=== PATIENT | female | born 1990 | race African-American/Black ===

== ENCOUNTER 2016-09-22 12:13 | Emergency (ER) | payer OTHER, SELFPAY ==
--- NOTE | 2016-09-22 13:06 | EDDOCDS ---
Nurse's Notes [facility] Name: Richie Maravilla Age: 25 yrs Sex: Female : 1990 Arrival Date: 09/22/2016 Time: 12:13 Bed Triage 1 Private MD: Kostas - Complete Info On Cds Diagnosis: Hemorrhoids and perianal venous thrombosis-external Presentation: 09/22 12:25 Presenting complaint: Mother states: hemorrhoids from giving 5 years ago. Patient hs1 reports bleeding this morning and for the past couple of days. Patient also reports mucus in stool. Adult Sepsis Screening: The patient does not have new or worsening altered mentation. Patient's respiratory rate is less than 22. Systolic blood pressure is greater than 100. Patient has a qSOFA score of 0- Negative Sepsis Screen. Suicide/Homicide risk assessment- the patient denies having any suicidal and/or homicidal ideations and does not present with any other emotional, behavioral or mental health complaints. Status: The patient is a dependent. Transition of care: patient was not received from another setting of care. 12:25 Acuity: ANN Level 3 hs1 12:25 Method Of Arrival: Walkin/Carried/Asstd hs1 Triage Assessment: 12:27 General: Appears in no apparent distress, Behavior is appropriate for age, cooperative. hs1 Pain: Location: anus Pain currently is 7 out of 10 on a pain scale. Pain: Quality of pain is described as aching, sharp, throbbing. Pt Declines HIV testing. Respiratory: No deficits noted. 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 none - PMHx: none; - PSHx: Laparoscopy; - Social history: Smoking status: Patient states was never smoker of tobacco. No barriers to communication noted, The patient speaks fluent Indonesian, Speaks appropriately for age. - Family history: Not pertinent. - : The pt / caregiver states he / she is not on anticoagulants. Home medication list is obtained from the patient. - Exposure Risk Screening:: None identified. Screenin:04 Screening information is obtained from the patient. Fall risk: No risks identified. mlb1 Assistance ADL's: requires no assistance with activities of daily living. Abuse/DV Screen: The patient / caregiver reports he/she is: not in a situation that causes fear, pain or injury. Nutritional screening: No deficits noted. Advance Directives: Currently, there is no health care proxy. home support is adequate. Assessment: 13:04 General: Appears in no apparent distress, comfortable, Behavior is appropriate for age, mlb1 cooperative. Pain: Location: anus Pain currently is 6 out of 10 on a pain scale. Neurological: No deficits noted. Vital Signs: 12:15 BP 122 / 85; Pulse 68; Resp 18 S; Temp 96.0(O); Pulse Ox 100% on R/A; Weight 69.85 kg gr2 (R); Height 5 ft. 4 in. (162.56 cm) (R); Pain 8/10; 12:15 Body Mass Index 26.43 (69.85 kg, 162.56 cm) gr2 Vitals: 12:15 Log In Time: September 22, 2016 at 12:15. gr2 ED Course: 12:15 Patient visited by Meli Perkins. gr2 12:15 Other - Complete Info On Cds is Private Physician. gr2 12:15 Patient moved to Waiting gr2 12:16 Patient visited by Meli Perkins. gr2 12:16 Patient moved to Pre RCE gr2 12:27 Triage Initiated hs1 12:30 Patient moved to Triage 1 mk4 12:36 Antonio Blue PA-C is PHCP. cc10 12:36 Rosa Joy MD is Attending Physician. cc10 12:41 Patient visited by Antonio Blue PA-C. cc10 12:41 Patient visited by Antonio Blue PA-C. cc10 12:54 Henrietta [facility] [place] is Referral Physician. cc10 13:04 No IV's were initiated during this patient's visit. No procedures done that require mlb1 assistance. 13:05 The patient / caregiver is instructed regarding the plan of care and ED course. mlb1 Order Results: There are currently no results for this order. Outcome: 12:54 Discharge ordered by Provider. cc10 13:05 Discharge Assessment: Patient awake, alert and oriented x 3. No cognitive and/or mlb1 functional deficits noted. Patient verbalized understanding of disposition instructions. patient administered narcotics - no. The following High Risk Discharge criteria are identified: None. Discharged to home ambulatory. Condition: good. Discharge instructions given to patient, Instructed on discharge instructions, follow up and referral plans. Demonstrated understanding of instructions, medications, Pt was receptive of discharge instructions/ teaching. Prescriptions given X 3. No special radiology studies were completed. Property sent home with patient. 13:06 Patient left the ED. mlb1 Signatures: Tommie Johnson RN RN mlb1 Jayne Wilks RN RN hs1 Meli Perkins gr2 Divya Hines RN RN mk4 Antonio Blue, PA-C PA-C cc10 MTDD
--- NOTE | 2016-09-22 13:06 | EDDOCDS ---
Physician Documentation [facility] Name: Richie Maravilla Age: 25 yrs Sex: Female : 1990 Arrival Date: 09/22/2016 Time: 12:13 Bed Triage 1 Private MD: Kostas - Complete Info On Cds Disposition: 09/22/16 12:54 Discharged to Home/Self Care. Impression: Hemorrhoids and perianal venous thrombosis - external. - Condition is Stable. - Discharge Instructions: Hemorrhoids, Sitz Bath. - Prescriptions for Dulcolax 5 mg - take 2 tablet by ORAL route at bedtime As needed; 30 tablet. Hydrocortisone 2.5 % Rectal Cream - apply 1 application by TOPICAL route 4 times per day apply to rectal area; 30 gram. Miralax 17 gram/dose - take 17 gram by ORAL route once daily As needed dilute in 8 ounces of water or juice; 1 bottle. - Medication Reconciliation, Work Release Form - 1 day form. - Follow up: DENNIS Shrestha; When: Call to arrange an appointment; Reason: Wound/Symptom Recheck, Recheck today's complaints, Worsening of conditions, Continuance of care. - Problem is an ongoing problem. - Symptoms are unchanged. Historical: - Allergies: No known drug Allergies; - Home Meds: 1. none - PMHx: none; - PSHx: Laparoscopy; - Social history: Smoking status: Patient states was never smoker of tobacco. No barriers to communication noted, The patient speaks fluent Kosovan, Speaks appropriately for age. - Family history: Not pertinent. - : The pt / caregiver states he / she is not on anticoagulants. Home medication list is obtained from the patient. - Exposure Risk Screening:: None identified. 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 4 in. (162.56 cm) (R); Pain 8/10; 12:15 Body Mass Index 26.43 (69.85 kg, 162.56 cm) gr2 MDM: 12:45 Undress patient appropriately for examination ordered. cc10 12:45 Misc. Nursing Order ordered. cc10 Signatures: Tommie Johnson RN RN mlb1 Jayne Wilks RN RN hs1 Antonio Blue PA-C PA-C cc10 MTDD
--- NOTE | 2016-09-24 14:06 | EDDOCDS ---
Physician Documentation [facility] Name: Richie Maravilla Age: 25 yrs Sex: Female : 1990 Arrival Date: 09/22/2016 Time: 12:13 Bed Triage 1 Private MD: Kostas - Complete Info On Cds Disposition: 09/22/16 12:54 Discharged to Home/Self Care. Impression: Hemorrhoids and perianal venous thrombosis - external. - Condition is Stable. - Discharge Instructions: Hemorrhoids, Sitz Bath. - Prescriptions for Dulcolax 5 mg - take 2 tablet by ORAL route at bedtime As needed; 30 tablet. Hydrocortisone 2.5 % Rectal Cream - apply 1 application by TOPICAL route 4 times per day apply to rectal area; 30 gram. Miralax 17 gram/dose - take 17 gram by ORAL route once daily As needed dilute in 8 ounces of water or juice; 1 bottle. - Medication Reconciliation, Work Release Form - 1 day form. - Follow up: DENNIS Shrestha; When: Call to arrange an appointment; Reason: Wound/Symptom Recheck, Recheck today's complaints, Worsening of conditions, Continuance of care. - Problem is an ongoing problem. - Symptoms are unchanged. Historical: - Allergies: No known drug Allergies; - Home Meds: 1. none - PMHx: none; - PSHx: Laparoscopy; - Social history: Smoking status: Patient states was never smoker of tobacco. No barriers to communication noted, The patient speaks fluent Bermudian, Speaks appropriately for age. - Family history: Not pertinent. - : The pt / caregiver states he / she is not on anticoagulants. Home medication list is obtained from the patient. - Exposure Risk Screening:: None identified. 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 4 in. (162.56 cm) (R); Pain 8/10; 12:15 Body Mass Index 26.43 (69.85 kg, 162.56 cm) gr2 MDM: 12:45 Undress patient appropriately for examination ordered. cc10 12:45 Misc. Nursing Order ordered. cc10 14:51 T-Sheet-- Draft Copy was scanned into [employer] [facility] and attached to record. gb 14:56 Financial registration complete. mm15 14:56 [facility] Payment Agreement was scanned into [employer] and attached to record. mm15 Signatures: Ghada Dillon, Reg Reg gb Tommie Johnson RN RN mlb1 Jayne Wilks RN RN hs1 Mann Clarke mm15 Antonio Blue PA-C PAAndreinaC cc10 The chart was reviewed and I authenticate all verbal orders and agree with the evaluation and treatment provided.Attachments: 14:51 T-Sheet-- Draft Copy gb 14:56 [facility] Payment Agreement mm15 Chart Complete MTDD
--- NOTE | 2016-09-24 14:06 | EDDOCDS ---
Physician Documentation [facility] Name: Richie Maravilla Age: 25 yrs Sex: Female : 1990 Arrival Date: 09/22/2016 Time: 12:13 Bed Triage 1 Private MD: Kostas - Complete Info On Cds Disposition: 09/22/16 12:54 Discharged to Home/Self Care. Impression: Hemorrhoids and perianal venous thrombosis - external. - Condition is Stable. - Discharge Instructions: Hemorrhoids, Sitz Bath. - Prescriptions for Dulcolax 5 mg - take 2 tablet by ORAL route at bedtime As needed; 30 tablet. Hydrocortisone 2.5 % Rectal Cream - apply 1 application by TOPICAL route 4 times per day apply to rectal area; 30 gram. Miralax 17 gram/dose - take 17 gram by ORAL route once daily As needed dilute in 8 ounces of water or juice; 1 bottle. - Medication Reconciliation, Work Release Form - 1 day form. - Follow up: DENNIS Shrestha; When: Call to arrange an appointment; Reason: Wound/Symptom Recheck, Recheck today's complaints, Worsening of conditions, Continuance of care. - Problem is an ongoing problem. - Symptoms are unchanged. Historical: - Allergies: No known drug Allergies; - Home Meds: 1. none - PMHx: none; - PSHx: Laparoscopy; - Social history: Smoking status: Patient states was never smoker of tobacco. No barriers to communication noted, The patient speaks fluent East Timorese, Speaks appropriately for age. - Family history: Not pertinent. - : The pt / caregiver states he / she is not on anticoagulants. Home medication list is obtained from the patient. - Exposure Risk Screening:: None identified. 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 4 in. (162.56 cm) (R); Pain 8/10; 12:15 Body Mass Index 26.43 (69.85 kg, 162.56 cm) gr2 MDM: 12:45 Undress patient appropriately for examination ordered. cc10 12:45 Misc. Nursing Order ordered. cc10 14:51 T-Sheet-- Draft Copy was scanned into [employer] and attached to record. gb 14:56 Financial registration complete. mm15 14:56 [facility] Payment Agreement was scanned into [employer] and attached to record. mm15 Signatures: Ghada Dillon, Reg Reg gb Tommie Johnson RN RN mlb1 Jayne Wilks RN RN hs1 Mann Clarke mm15 Antonio Blue PA-C PAAndreinaC cc10 The chart was reviewed and I authenticate all verbal orders and agree with the evaluation and treatment provided.Attachments: 14:51 T-Sheet-- Draft Copy gb 14:56 [facility] Payment Agreement mm15 Chart Complete MTDD
--- NOTE | 2016-09-24 14:06 | EDDOCDS ---
Nurse's Notes [facility] Name: Richie Maravilla Age: 25 yrs Sex: Female : 1990 Arrival Date: 09/22/2016 Time: 12:13 Bed Triage 1 Private MD: Kostas - Complete Info On Cds Diagnosis: Hemorrhoids and perianal venous thrombosis-external Presentation: 09/22 12:25 Presenting complaint: Mother states: hemorrhoids from giving 5 years ago. Patient hs1 reports bleeding this morning and for the past couple of days. Patient also reports mucus in stool. Adult Sepsis Screening: The patient does not have new or worsening altered mentation. Patient's respiratory rate is less than 22. Systolic blood pressure is greater than 100. Patient has a qSOFA score of 0- Negative Sepsis Screen. Suicide/Homicide risk assessment- the patient denies having any suicidal and/or homicidal ideations and does not present with any other emotional, behavioral or mental health complaints. Status: The patient is a dependent. Transition of care: patient was not received from another setting of care. 12:25 Acuity: ANN Level 3 hs1 12:25 Method Of Arrival: Walkin/Carried/Asstd hs1 Triage Assessment: 12:27 General: Appears in no apparent distress, Behavior is appropriate for age, cooperative. hs1 Pain: Location: anus Pain currently is 7 out of 10 on a pain scale. Pain: Quality of pain is described as aching, sharp, throbbing. Pt Declines HIV testing. Respiratory: No deficits noted. 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 none - PMHx: none; - PSHx: Laparoscopy; - Social history: Smoking status: Patient states was never smoker of tobacco. No barriers to communication noted, The patient speaks fluent Salvadorean, Speaks appropriately for age. - Family history: Not pertinent. - : The pt / caregiver states he / she is not on anticoagulants. Home medication list is obtained from the patient. - Exposure Risk Screening:: None identified. Screenin:04 Screening information is obtained from the patient. Fall risk: No risks identified. mlb1 Assistance ADL's: requires no assistance with activities of daily living. Abuse/DV Screen: The patient / caregiver reports he/she is: not in a situation that causes fear, pain or injury. Nutritional screening: No deficits noted. Advance Directives: Currently, there is no health care proxy. home support is adequate. Assessment: 13:04 General: Appears in no apparent distress, comfortable, Behavior is appropriate for age, mlb1 cooperative. Pain: Location: anus Pain currently is 6 out of 10 on a pain scale. Neurological: No deficits noted. Vital Signs: 12:15 BP 122 / 85; Pulse 68; Resp 18 S; Temp 96.0(O); Pulse Ox 100% on R/A; Weight 69.85 kg gr2 (R); Height 5 ft. 4 in. (162.56 cm) (R); Pain 8/10; 12:15 Body Mass Index 26.43 (69.85 kg, 162.56 cm) gr2 Vitals: 12:15 Log In Time: September 22, 2016 at 12:15. gr2 ED Course: 12:15 Patient visited by Meli Perkins. gr2 12:15 Other - Complete Info On Cds is Private Physician. gr2 12:15 Patient moved to Waiting gr2 12:16 Patient visited by Meli Perkins. gr2 12:16 Patient moved to Pre RCE gr2 12:27 Triage Initiated hs1 12:30 Patient moved to Triage 1 mk4 12:36 Antonio Blue PA-C is PHCP. cc10 12:36 Rosa Joy MD is Attending Physician. cc10 12:41 Patient visited by Antonio Blue PA-C. cc10 12:41 Patient visited by Antonio Blue PA-C. cc10 12:54 Henrietta [facility] [place] [facility] is Referral Physician. cc10 13:04 No IV's were initiated during this patient's visit. No procedures done that require mlb1 assistance. 13:05 The patient / caregiver is instructed regarding the plan of care and ED course. mlb1 14:51 T-Sheet-- Draft Copy was scanned into [employer] and attached to record. gb 14:56 [facility] Payment Agreement was scanned into [employer] and attached to record. mm15 15:03 Patient name changed from Taelea\S\\S\Maravilla\S\ to Taelea\S\ \S\Maravilla. EDMS Order Results: There are currently no results for this order. Outcome: 12:54 Discharge ordered by Provider. cc10 13:05 Discharge Assessment: Patient awake, alert and oriented x 3. No cognitive and/or mlb1 functional deficits noted. Patient verbalized understanding of disposition instructions. patient administered narcotics - no. The following High Risk Discharge criteria are identified: None. Discharged to home ambulatory. Condition: good. Discharge instructions given to patient, Instructed on discharge instructions, follow up and referral plans. Demonstrated understanding of instructions, medications, Pt was receptive of discharge instructions/ teaching. Prescriptions given X 3. No special radiology studies were completed. Property sent home with patient. 13:06 Patient left the ED. mlb1 Signatures: Dispatcher [employer] EDWA Ghada Dillon, Lalo Reg Tommie Valverde RN RN mlb1 Jayne Wilks RN RN hs1 Meli Perkins gr2 Mann Clarke mm15 Divya Hines, CATRACHO RN mk4 Antonio Blue, PAAmber PA-C cc10 Chart Complete ELIZ[facility]ETH
== END 2016-09-22 13:06 | disposition home or self-care (01) ==
LOC: M ED 12:13
DX: K64.9 Unspecified hemorrhoids (principal)

== ENCOUNTER 2016-11-02 19:39 | Emergency (ER) | payer OTHER ==
[~2016-11-02] VITALS: Ht 162.6 cm; Wt 69.9 kg
[2016-11-02 21:38] VITALS: BP 114/70
== END 2016-11-02 21:44 | disposition home or self-care (01) ==
LOC: M ED 20:29
DX: Z20.2 Contact with and (suspected) exposure to infections with a predominantly sexual mode of transmission (principal)